=== PATIENT | male | born 2000 | race African-American/Black ===

== ENCOUNTER 2025-06-26 04:32 | Emergency (ER) | payer OTHER ==
[~2025-06-26] VITALS: Ht 170.2 cm; Wt 66.3 kg
[2025-06-26] MEDS ORDERED: ONE-TAB31 PO (08:04)
[2025-06-26 08:15] VITALS: BP 123/62; TEMP 97.2; O2SAT 97
== END 2025-06-26 08:31 | disposition home or self-care (01) ==
LOC: M ED 04:32
DX: R05.9 Cough, unspecified (principal); B34.1 Enterovirus infection, unspecified; Z79.810 Long term (current) use of selective estrogen receptor modulators (SERMs)